=== PATIENT | male | born 1970 | race Caucasian/White ===

== ENCOUNTER 2022-08-10 23:29 | Inpatient (IN) ==
[2022-08-10] MEDS ORDERED: ALBUTEROL NEB SOLN 5 MG/ML 20 ML/BOTTLE CONT NEB SCH (23:45)
[2022-08-10] MEDS ORDERED: methylPREDNISolone SOD SUC 125 MG/2 ML VIAL IV STA (23:46)
[2022-08-10] MEDS ORDERED: niCARdipine INJ 25 MG in SODIUM CHLORIDE 0.9% 240 ML IV PRN (23:52)
[2022-08-10] MEDS ORDERED: ROCURONIUM 100 MG/10 ML VIAL IV ONE (23:57)
[2022-08-10] MEDS ORDERED: ETOMIDATE 20 MG/10 ML VIAL IV ONE (23:57)
[2022-08-10] MEDS ORDERED: ALBUTEROL 2.5 MG/3 ML NEB RESP TX ONE (23:59)
[2022-08-11 00:02] LABS: INR 1.1; PT Patient Result 11.6 SECS (10.1-12.1); Partial Thromboplastin Time 28.3 SECS (23.7-32.9)
[2022-08-11] MEDS ORDERED: niCARdipine 25 MG/10 ML VIAL IV ONE (00:03)
[2022-08-11 00:09] LABS: Albumin 4.3 G/DL (3.4-5.0); Bilirubin,Total 0.6 MG/DL (0.20-1.00); Calcium 8.9 MG/DL (8.5-10.1); Osmolality,Calculated 283.1 MOS/KG (273-304); Potassium 4.1 MMOL/L (3.5-5.1); Total Protein 7.7 G/DL (6.4-8.2)
[2022-08-11 00:20] LABS: Basophils # 0.1 10*3/uL (0.0-0.2); Basophils % 0.5 % (0.0-0.8); Eosinophils # 0.3 10*3/uL (0.0-0.87); Eosinophils % 3.3 % (0.00-10.9); Hematocrit 45.5 VOL% (42.0-52.0); Immature Granulocytes % 0.3 %; Immature Granulocytes Absolute 0.03 #; Lymphocytes # 3.4 10*3/uL (1.4-4.0); Lymphocytes % 36.1 % (21.2-54.2); Mean Corpuscular Volume 99.1 FL (87-102); Monocytes # 0.9 10*3/uL (0.11-0.8); Monocytes % 9.1 % (1.7-12.7); Neutrophils % 50.7 % (38.7-73.9); Platelet Count 234 T/CUMM (130-400); Red Blood Count 4.59 MC/CUMM (3.8-5.5); Red Cell Distribution Width 13.4 % (9.3-17.3); White Blood Count 9.4 T/CUMM (4-12)
[2022-08-11 00:33] LABS: Arterial Base Excess iSTAT -1 MMOL/L (-2.5-2.5); Arterial Bicarbonate iSTAT 26.1 MMOL/L (20-26); Arterial O2 Saturation iSTAT 96 % (95-100); Arterial PCO2 iSTAT 53 MM HG (35-48); Arterial PO2 iSTAT 93 MM HG (80-95); Arterial Total CO2 iSTAT 28 MMO/L (23-27)
[2022-08-11 00:40] LABS: Hyaline Casts,Urine 8 /LPF (0-3); Mucus,Urine Occasional /LPF (Occasional); Squamous Epithelial Cell,Urine Occasional /HPF (0-10)
[2022-08-11 00:42] LABS: Urine Appearance Clear (Clear); Urine Color Yellow (Yellow); Urine Specific Gravity >= 1.030 (1.001-1.035); Urine pH 6.5 (4.5-8.0)
[2022-08-11 00:43] LABS: Bilirubin,Urine Negative (Negative); Blood, Urine Moderate mg/dL (Negative); Glucose,Urine (UA) 100 mg/dL (Negative); Ketones,Urine Negative (Negative); Nitrite,Urine Negative (Negative); Protein,Urine >=300 mg/dL (Negative)
[2022-08-11] MEDS ORDERED: ROCURONIUM 100 MG/10 ML VIAL IV ONE (00:57)
[2022-08-11] MEDS ORDERED: ROCURONIUM 100 MG/10 ML VIAL IV STA (01:00)
[2022-08-11] MEDS ORDERED: ALBUTEROL 2.5 MG/3 ML NEB RESP TX PRN (01:08)
[2022-08-11] MEDS ORDERED: ONDANSETRON 4 MG/2 ML VIAL IV PRN (01:09)
[2022-08-11 01:38] LABS: Barbiturates Screen,Urine Negative (Negative); Benzodiazepines Screen,Urine Negative (Negative); Cannabinoid Screen,Urine Negative (Negative); Opiate Screen,Urine Negative (Negative); Phencyclidine Screen,Urine Negative (Negative)
[2022-08-11] MEDS ORDERED: MIDAZOLAM 2 MG/2 ML VIAL IV ONE (03:11)
[2022-08-11] MEDS ORDERED: MIDAZOLAM 10 MG/2 ML VIAL ONE (03:12)
[2022-08-11] MEDS: MIDAZOLAM DRIP 100 MG/100 ML PREMIX IV PRN ×2 (03:41→23:20)
[2022-08-11 03:42] LABS: Basophils % 0.3 % (0.0-0.8); Eosinophils # 0.1 10*3/uL (0.0-0.87); Eosinophils % 0.4 % (0.00-10.9); Hematocrit 44.8 VOL% (42.0-52.0); Hemoglobin 14.7 GM/DL (14.0-18.0); Immature Granulocytes % 0.3 %; Immature Granulocytes Absolute 0.04 #; Lymphocytes % 8.5 % (21.2-54.2); Mean Corpuscular HGB Conc 32.8 GM/DL (32-36); Mean Corpuscular Volume 98.7 FL (87-102); Mean Platelet Volume 11.6 FL (9.6-12.0); Monocytes # 0.3 10*3/uL (0.11-0.8); Monocytes % 2.6 % (1.7-12.7); Neutrophils % 87.9 % (38.7-73.9); Platelet Count 227 T/CUMM (130-400); Red Blood Count 4.54 MC/CUMM (3.8-5.5); Red Cell Distribution Width 13.3 % (9.3-17.3)
[2022-08-11] MEDS ORDERED: SODIUM CHLORIDE 0.9% 500 ML IV ONE (03:50)
[2022-08-11] MEDS ORDERED: SODIUM CHLORIDE 0.9% 2,000 ML IV ONE (03:50)
[2022-08-11 04:03] LABS: Albumin 4.3 G/DL (3.4-5.0); Bilirubin,Total 0.9 MG/DL (0.20-1.00); Calcium 8.9 MG/DL (8.5-10.1); Osmolality,Calculated 284.3 MOS/KG (273-304); Potassium 4.5 MMOL/L (3.5-5.1); Total Protein 7.4 G/DL (6.4-8.2)
[2022-08-11] MEDS: DOPamine 800 MG/250 ML PREMIX IV PRN (05:12)
[2022-08-11] MEDS: FUROSEMIDE INJ 100 MG in SODIUM CHLORIDE 0.9% 90 ML IV SCH ×2 (11:27→20:12)
[2022-08-11 16:41] LABS: Calcium 8.9 MG/DL (8.5-10.1); Osmolality,Calculated 285.3 MOS/KG (273-304); Potassium 3.9 MMOL/L (3.5-5.1)
[2022-08-12 04:18] LABS: ABG Base Excess 6.4 MMOL/L (-2.5-2.5); ABG HCO3 30.2 MMOL/L (20-26); ABG Oxygen Saturation 96.9 % (95-100); ABG PCO2 43.1 MM HG (35-48); ABG PH 7.465 (7.35-7.45); ABG PO2 84.9 MM HG (80-95); ABG TCO2 26.4 MMOL/L (23-27)
[2022-08-12 04:30] LABS: Basophils % 0.1 % (0.0-0.8); Hematocrit 42.6 VOL% (42.0-52.0); Hemoglobin 14.4 GM/DL (14.0-18.0); Immature Granulocytes % 0.5 %; Immature Granulocytes Absolute 0.12 #; Lymphocytes # 1.6 10*3/uL (1.4-4.0); Lymphocytes % 7.2 % (21.2-54.2); Mean Corpuscular HGB Conc 33.8 GM/DL (32-36); Mean Corpuscular Volume 96.2 FL (87-102); Mean Platelet Volume 10.8 FL (9.6-12.0); Monocytes # 1.4 10*3/uL (0.11-0.8); Monocytes % 6.2 % (1.7-12.7); Platelet Count 281 T/CUMM (130-400); Red Blood Count 4.43 MC/CUMM (3.8-5.5); Red Cell Distribution Width 13.2 % (9.3-17.3); White Blood Count 22.2 T/CUMM (4-12)
[2022-08-12 04:36] LABS: Albumin 3.7 G/DL (3.4-5.0); Bilirubin,Total 0.5 MG/DL (0.20-1.00); Calcium 9.1 MG/DL (8.5-10.1); Osmolality,Calculated 286.1 MOS/KG (273-304); Potassium 3.5 MMOL/L (3.5-5.1); Total Protein 7.3 G/DL (6.4-8.2)
[2022-08-12 05:42] LABS: Lymphocytes 7 % (20-55); Platelet Estimate Adequate; Total Cells Counted 100
[2022-08-12] MEDS: FUROSEMIDE INJ 100 MG in SODIUM CHLORIDE 0.9% 90 ML IV SCH ×2 (06:15→16:40)
[2022-08-12] MEDS: DOPamine 800 MG/250 ML PREMIX IV PRN (11:52)
[2022-08-12 12:57] LABS: ABG Base Excess 7.2 MMOL/L (-2.5-2.5); ABG Oxygen Saturation 97.7 % (95-100); ABG PCO2 46.6 MM HG (35-48); ABG PH 7.451 (7.35-7.45); ABG PO2 99.1 MM HG (80-95); ABG TCO2 27.7 MMOL/L (23-27)
[2022-08-13] MEDS: FUROSEMIDE INJ 100 MG in SODIUM CHLORIDE 0.9% 90 ML IV SCH (02:42)
[2022-08-13 04:46] LABS: ABG Base Excess 8.5 MMOL/L (-2.5-2.5); ABG HCO3 32.2 MMOL/L (20-26); ABG Oxygen Saturation 96.1 % (95-100); ABG PCO2 44.5 MM HG (35-48); ABG PH 7.481 (7.35-7.45); ABG PO2 82.8 MM HG (80-95)
[2022-08-13 04:54] LABS: Basophils % 0.2 % (0.0-0.8); Hematocrit 42.5 VOL% (42.0-52.0); Hemoglobin 14.4 GM/DL (14.0-18.0); Immature Granulocytes % 0.5 %; Immature Granulocytes Absolute 0.08 #; Lymphocytes # 1.6 10*3/uL (1.4-4.0); Mean Corpuscular HGB Conc 33.9 GM/DL (32-36); Mean Corpuscular Volume 97.7 FL (87-102); Monocytes # 1.5 10*3/uL (0.11-0.8); Monocytes % 8.4 % (1.7-12.7); Neutrophils % 81.9 % (38.7-73.9); Platelet Count 249 T/CUMM (130-400); Red Blood Count 4.35 MC/CUMM (3.8-5.5); Red Cell Distribution Width 13.8 % (9.3-17.3); White Blood Count 17.4 T/CUMM (4-12)
[2022-08-13 05:11] LABS: Albumin 3.7 G/DL (3.4-5.0); Bilirubin,Total 0.5 MG/DL (0.20-1.00); Calcium 9.3 MG/DL (8.5-10.1); Osmolality,Calculated 289.3 MOS/KG (273-304); Potassium 3.2 MMOL/L (3.5-5.1); Total Protein 7.4 G/DL (6.4-8.2)
[2022-08-13] MEDS ORDERED: POTASSIUM BICARB EFFERVESCENT 20 MEQ TAB.EFF PER TUBE PRN (09:21)
[2022-08-13] MEDS: AZITHROMYCIN INJ 500 MG in SODIUM CHLORIDE 0.9% 250 ML IV SCH (11:06)
[2022-08-13] MEDS: ENOXAPARIN 40 MG/0.4 ML SYRINGE SUBCUT SCH (11:09)
[2022-08-13] MEDS: PANTOPRAZOLE 40 MG VIAL IV SCH (11:10)
[2022-08-13] MEDS: cefTRIAXone 1,000 MG in SODIUM CHLORIDE 0.9% 100 ML IV SCH (12:09)
[2022-08-13] MEDS: FUROSEMIDE 40 MG/4 ML VIAL IV SCH (18:25)
[2022-08-14] MEDS: DOPamine 800 MG/250 ML PREMIX IV PRN (01:58)
[2022-08-14 03:30] LABS: Basophils # 0.1 10*3/uL (0.0-0.2); Basophils % 0.4 % (0.0-0.8); Eosinophils # 0.1 10*3/uL (0.0-0.87); Eosinophils % 0.5 % (0.00-10.9); Hematocrit 43.3 VOL% (42.0-52.0); Hemoglobin 14.4 GM/DL (14.0-18.0); Immature Granulocytes % 0.4 %; Immature Granulocytes Absolute 0.05 #; Lymphocytes % 14.8 % (21.2-54.2); Mean Corpuscular HGB Conc 33.3 GM/DL (32-36); Mean Corpuscular Volume 97.7 FL (87-102); Mean Platelet Volume 10.9 FL (9.6-12.0); Monocytes # 1.1 10*3/uL (0.11-0.8); Monocytes % 8.3 % (1.7-12.7); Neutrophils % 75.6 % (38.7-73.9); Platelet Count 241 T/CUMM (130-400); Red Blood Count 4.43 MC/CUMM (3.8-5.5); Red Cell Distribution Width 13.8 % (9.3-17.3); White Blood Count 13.7 T/CUMM (4-12)
[2022-08-14 03:37] LABS: ABG Base Excess 9.7 MMOL/L (-2.5-2.5); ABG HCO3 33.5 MMOL/L (20-26); ABG Oxygen Saturation 96.5 % (95-100); ABG PCO2 42.6 MM HG (35-48); ABG PH 7.509 (7.35-7.45); ABG PO2 81.9 MM HG (80-95); ABG TCO2 29.2 MMOL/L (23-27)
[2022-08-14 03:49] LABS: Albumin 3.4 G/DL (3.4-5.0); Bilirubin,Total 0.5 MG/DL (0.20-1.00); Calcium 8.7 MG/DL (8.5-10.1); Osmolality,Calculated 296.7 MOS/KG (273-304); Potassium 3.3 MMOL/L (3.5-5.1); Total Protein 7.1 G/DL (6.4-8.2)
[2022-08-14] MEDS: FUROSEMIDE 40 MG/4 ML VIAL IV SCH ×2 (08:36→18:29)
[2022-08-14] MEDS: ENOXAPARIN 40 MG/0.4 ML SYRINGE SUBCUT SCH (08:37)
[2022-08-14] MEDS: cefTRIAXone 1,000 MG in SODIUM CHLORIDE 0.9% 100 ML IV SCH (08:37)
[2022-08-14] MEDS: PANTOPRAZOLE 40 MG VIAL IV SCH (08:37)
[2022-08-14] MEDS: ASPIRIN EC 81 MG TABLET PO SCH (08:37)
[2022-08-14 09:57] LABS: ABG Base Excess 9.3 MMOL/L (-2.5-2.5); ABG Oxygen Saturation 95.4 % (95-100); ABG PCO2 49.8 MM HG (35-48); ABG PH 7.457 (7.35-7.45); ABG PO2 80.3 MM HG (80-95); ABG TCO2 29.7 MMOL/L (23-27)
[2022-08-14] MEDS: LORazepam 2 MG/1 ML VIAL IV PRN ×3 (12:17→22:19)
[2022-08-14] MEDS: hydrALAZINE 20 MG/1 ML VIAL IV PRN ×3 (13:26→23:10)
[2022-08-14 13:55] LABS: Arterial Base Excess iSTAT 11 MMOL/L (-2.5-2.5); Arterial Bicarbonate iSTAT 35.2 MMOL/L (20-26); Arterial O2 Saturation iSTAT 94 % (95-100); Arterial PCO2 iSTAT 41 MM HG (35-48); Arterial PO2 iSTAT 62 MM HG (80-95); Arterial Total CO2 iSTAT 36 MMO/L (23-27); Arterial pH iSTAT 7.539 (7.35-7.45)
[2022-08-14] MEDS ORDERED: FUROSEMIDE 40 MG/4 ML VIAL IV ONE (14:10)
[2022-08-14] MEDS: ALBUTEROL/IPRATROPIUM 3 ML NEB RESP TX SCH ×2 (14:15→18:59)
[2022-08-14] MEDS: AZITHROMYCIN INJ 500 MG in SODIUM CHLORIDE 0.9% 250 ML IV SCH (15:15)
[2022-08-14] MEDS: ALPRAZolam 0.5 MG TABLET PO SCH (20:00)
[2022-08-15] MEDS ORDERED: LABETALOL 20 MG/4 ML SYRINGE IV ONE (01:28)
[2022-08-15] MEDS: ALBUTEROL/IPRATROPIUM 3 ML NEB RESP TX SCH ×4 (02:00→19:10)
[2022-08-15 03:20] LABS: Basophils # 0.1 10*3/uL (0.0-0.2); Basophils % 0.4 % (0.0-0.8); Eosinophils % 0.1 % (0.00-10.9); Hematocrit 47.6 VOL% (42.0-52.0); Hemoglobin 15.7 GM/DL (14.0-18.0); Immature Granulocytes % 0.5 %; Immature Granulocytes Absolute 0.08 #; Lymphocytes # 1.4 10*3/uL (1.4-4.0); Lymphocytes % 8.2 % (21.2-54.2); Mean Corpuscular Volume 97.5 FL (87-102); Monocytes # 1.3 10*3/uL (0.11-0.8); Monocytes % 7.6 % (1.7-12.7); Neutrophils % 83.2 % (38.7-73.9); Platelet Count 267 T/CUMM (130-400); Red Blood Count 4.88 MC/CUMM (3.8-5.5); Red Cell Distribution Width 13.4 % (9.3-17.3); White Blood Count 17.1 T/CUMM (4-12)
[2022-08-15] MEDS: LORazepam 2 MG/1 ML VIAL IV PRN ×4 (03:35→22:00)
[2022-08-15 03:48] LABS: Calcium 9.6 MG/DL (8.5-10.1); Osmolality,Calculated 306.1 MOS/KG (273-304)
[2022-08-15 04:06] LABS: Arterial Base Excess iSTAT 12 MMOL/L (-2.5-2.5); Arterial Bicarbonate iSTAT 37.5 MMOL/L (20-26); Arterial O2 Saturation iSTAT 98 % (95-100); Arterial PCO2 iSTAT 47 MM HG (35-48); Arterial PO2 iSTAT 96 MM HG (80-95); Arterial Total CO2 iSTAT 39 MMO/L (23-27); Arterial pH iSTAT 7.509 (7.35-7.45)
[2022-08-15] MEDS ORDERED: POTASSIUM CHLORIDE 20 MEQ TABLET PO ONE (07:35)
[2022-08-15] MEDS: LOSARTAN 25 MG TABLET PO SCH ×2 (08:21→20:21)
[2022-08-15] MEDS: carvediloL 3.125 MG TABLET PO SCH ×2 (08:21→16:01)
[2022-08-15] MEDS: ASPIRIN EC 81 MG TABLET PO SCH (08:21)
[2022-08-15] MEDS: ALPRAZolam 0.5 MG TABLET PO SCH ×2 (08:21→15:48)
[2022-08-15] MEDS: PANTOPRAZOLE 40 MG VIAL IV SCH (08:21)
[2022-08-15] MEDS ORDERED: NICOTINE 14 MG/24 HR PATCH TRANSDERM PRN (10:24)
[2022-08-15] MEDS: cefTRIAXone 1,000 MG in SODIUM CHLORIDE 0.9% 100 ML IV SCH (10:46)
[2022-08-15] MEDS: ENOXAPARIN 40 MG/0.4 ML SYRINGE SUBCUT SCH (10:46)
[2022-08-15] MEDS: AZITHROMYCIN INJ 500 MG in SODIUM CHLORIDE 0.9% 250 ML IV SCH (12:18)
[2022-08-15] MEDS ORDERED: ALPRAZolam 0.5 MG TABLET PO PRN (17:30)
[2022-08-15] MEDS: QUEtiapine 25 MG TABLET PO SCH (20:21)
[2022-08-16] MEDS: ALBUTEROL/IPRATROPIUM 3 ML NEB RESP TX SCH ×4 (00:30→19:29)
[2022-08-16] MEDS: LORazepam 2 MG/1 ML VIAL IV PRN ×4 (02:07→22:53)
[2022-08-16 04:42] LABS: Basophils # 0.1 10*3/uL (0.0-0.2); Basophils % 0.4 % (0.0-0.8); Eosinophils % 0.2 % (0.00-10.9); Hematocrit 48.3 VOL% (42.0-52.0); Hemoglobin 15.4 GM/DL (14.0-18.0); Immature Granulocytes % 0.4 %; Immature Granulocytes Absolute 0.06 #; Lymphocytes % 14.1 % (21.2-54.2); Mean Corpuscular HGB Conc 31.9 GM/DL (32-36); Mean Corpuscular Volume 101.3 FL (87-102); Mean Platelet Volume 11.5 FL (9.6-12.0); Monocytes % 7.1 % (1.7-12.7); Neutrophils % 77.8 % (38.7-73.9); Platelet Count 261 T/CUMM (130-400); Red Blood Count 4.77 MC/CUMM (3.8-5.5); Red Cell Distribution Width 13.4 % (9.3-17.3)
[2022-08-16 05:07] LABS: Albumin 3.5 G/DL (3.4-5.0); Calcium 9.1 MG/DL (8.5-10.1); Osmolality,Calculated 320.9 MOS/KG (273-304); Potassium 3.8 MMOL/L (3.5-5.1); Total Protein 7.7 G/DL (6.4-8.2)
[2022-08-16] MEDS: ASPIRIN EC 81 MG TABLET PO SCH (09:15)
[2022-08-16] MEDS: LOSARTAN 25 MG TABLET PO SCH ×2 (09:15→20:08)
[2022-08-16] MEDS: ENOXAPARIN 40 MG/0.4 ML SYRINGE SUBCUT SCH (09:15)
[2022-08-16] MEDS: PANTOPRAZOLE 40 MG VIAL IV SCH (09:16)
[2022-08-16] MEDS: cefTRIAXone 1,000 MG in SODIUM CHLORIDE 0.9% 100 ML IV SCH (09:17)
[2022-08-16] MEDS: carvediloL 3.125 MG TABLET PO SCH ×2 (09:20→16:56)
[2022-08-16] MEDS: AZITHROMYCIN INJ 500 MG in SODIUM CHLORIDE 0.9% 250 ML IV SCH (11:33)
[2022-08-16] MEDS ORDERED: LORazepam 2 MG/1 ML VIAL ONE (12:30)
[2022-08-16] MEDS ORDERED: ZIPRASIDONE 20 MG/1 ML VIAL IM ONE (15:44)
[2022-08-16] MEDS: QUEtiapine 25 MG TABLET PO SCH (20:08)
[2022-08-17] MEDS: ALBUTEROL/IPRATROPIUM 3 ML NEB RESP TX SCH ×4 (00:26→19:22)
[2022-08-17] MEDS ORDERED: ZIPRASIDONE 20 MG/1 ML VIAL IM ONE (02:15)
[2022-08-17 04:59] LABS: Arterial Base Excess iSTAT 6 MMOL/L (-2.5-2.5); Arterial Bicarbonate iSTAT 29.7 MMOL/L (20-26); Arterial O2 Saturation iSTAT 98 % (95-100); Arterial PCO2 iSTAT 40 MM HG (35-48); Arterial PO2 iSTAT 100 MM HG (80-95); Arterial Total CO2 iSTAT 31 MMO/L (23-27); Arterial pH iSTAT 7.479 (7.35-7.45)
[2022-08-17 05:42] LABS: Basophils # 0.1 10*3/uL (0.0-0.2); Basophils % 0.6 % (0.0-0.8); Eosinophils # 0.1 10*3/uL (0.0-0.87); Eosinophils % 0.5 % (0.00-10.9); Hematocrit 45.9 VOL% (42.0-52.0); Hemoglobin 14.8 GM/DL (14.0-18.0); Immature Granulocytes % 0.5 %; Immature Granulocytes Absolute 0.06 #; Lymphocytes # 2.1 10*3/uL (1.4-4.0); Lymphocytes % 17.2 % (21.2-54.2); Mean Corpuscular HGB Conc 32.2 GM/DL (32-36); Mean Corpuscular Volume 102.2 FL (87-102); Mean Platelet Volume 11.2 FL (9.6-12.0); Monocytes # 0.7 10*3/uL (0.11-0.8); Monocytes % 5.7 % (1.7-12.7); Neutrophils % 75.5 % (38.7-73.9); Platelet Count 243 T/CUMM (130-400); Red Blood Count 4.49 MC/CUMM (3.8-5.5); Red Cell Distribution Width 13.4 % (9.3-17.3); White Blood Count 12.4 T/CUMM (4-12)
[2022-08-17 06:04] LABS: Albumin 3.3 G/DL (3.4-5.0); Bilirubin,Total 0.7 MG/DL (0.20-1.00); Calcium 8.9 MG/DL (8.5-10.1); Osmolality,Calculated 326.6 MOS/KG (273-304); Potassium 3.9 MMOL/L (3.5-5.1); Total Protein 7.4 G/DL (6.4-8.2)
[2022-08-17] MEDS: PANTOPRAZOLE 40 MG VIAL IV SCH (08:20)
[2022-08-17] MEDS: carvediloL 3.125 MG TABLET PO SCH ×2 (08:21→16:42)
[2022-08-17] MEDS: ASPIRIN EC 81 MG TABLET PO SCH (08:21)
[2022-08-17] MEDS: LOSARTAN 25 MG TABLET PO SCH ×2 (08:21→20:23)
[2022-08-17] MEDS: cefTRIAXone 1,000 MG in SODIUM CHLORIDE 0.9% 100 ML IV SCH (08:46)
[2022-08-17] MEDS: ENOXAPARIN 40 MG/0.4 ML SYRINGE SUBCUT SCH (08:46)
[2022-08-17] MEDS ORDERED: AZITHROMYCIN INJ 500 MG in SODIUM CHLORIDE 0.9% 250 ML IV SCH (12:00)
[2022-08-17] MEDS: AZITHROMYCIN INJ 500 MG in SODIUM CHLORIDE 0.9% 250 ML IV SCH (12:06)
[2022-08-17 16:48] LABS: Calcium 8.1 MG/DL (8.5-10.1); Osmolality,Calculated 315.1 MOS/KG (273-304); Potassium 3.8 MMOL/L (3.5-5.1)
[2022-08-17] MEDS: QUEtiapine 25 MG TABLET PO SCH (20:23)
[2022-08-17] MEDS ORDERED: ALPRAZolam 0.5 MG TABLET PO SCH (21:00)
[2022-08-18] MEDS: ALBUTEROL/IPRATROPIUM 3 ML NEB RESP TX SCH ×4 (00:08→19:41)
[2022-08-18 04:41] LABS: Basophils # 0.1 10*3/uL (0.0-0.2); Basophils % 0.5 % (0.0-0.8); Eosinophils # 0.2 10*3/uL (0.0-0.87); Eosinophils % 1.6 % (0.00-10.9); Hematocrit 42.8 VOL% (42.0-52.0); Hemoglobin 13.8 GM/DL (14.0-18.0); Immature Granulocytes % 0.5 %; Immature Granulocytes Absolute 0.07 #; Lymphocytes # 2.6 10*3/uL (1.4-4.0); Lymphocytes % 18.9 % (21.2-54.2); Mean Corpuscular HGB Conc 32.2 GM/DL (32-36); Mean Corpuscular Volume 101.2 FL (87-102); Mean Platelet Volume 11.5 FL (9.6-12.0); Monocytes # 0.8 10*3/uL (0.11-0.8); Neutrophils % 72.5 % (38.7-73.9); Platelet Count 228 T/CUMM (130-400); Red Blood Count 4.23 MC/CUMM (3.8-5.5); White Blood Count 13.5 T/CUMM (4-12)
[2022-08-18 05:07] LABS: Calcium 8.6 MG/DL (8.5-10.1); Osmolality,Calculated 305.7 MOS/KG (273-304); Potassium 3.7 MMOL/L (3.5-5.1); Total Protein 6.8 G/DL (6.4-8.2)
[2022-08-18] MEDS ORDERED: ALPRAZolam 0.5 MG TABLET PO PRN (08:45)
[2022-08-18] MEDS: ENOXAPARIN 40 MG/0.4 ML SYRINGE SUBCUT SCH (09:55)
[2022-08-18] MEDS: LOSARTAN 25 MG TABLET PO SCH ×2 (09:55→20:18)
[2022-08-18] MEDS: ASPIRIN EC 81 MG TABLET PO SCH (09:55)
[2022-08-18] MEDS: chlordiazePOXIDE 25 MG CAPSULE PO SCH ×4 (09:55→20:18)
[2022-08-18] MEDS: PANTOPRAZOLE 40 MG VIAL IV SCH (09:56)
[2022-08-18] MEDS: cefTRIAXone 1,000 MG in SODIUM CHLORIDE 0.9% 100 ML IV SCH (10:00)
[2022-08-18] MEDS: QUEtiapine 25 MG TABLET PO SCH (20:18)
[2022-08-19] MEDS: ALBUTEROL/IPRATROPIUM 3 ML NEB RESP TX SCH ×4 (01:13→18:14)
[2022-08-19 06:43] LABS: Basophils # 0.1 10*3/uL (0.0-0.2); Basophils % 0.5 % (0.0-0.8); Eosinophils # 0.3 10*3/uL (0.0-0.87); Eosinophils % 2.2 % (0.00-10.9); Hemoglobin 14.3 GM/DL (14.0-18.0); Immature Granulocytes % 0.4 %; Immature Granulocytes Absolute 0.05 #; Lymphocytes # 2.2 10*3/uL (1.4-4.0); Mean Corpuscular HGB Conc 33.3 GM/DL (32-36); Mean Corpuscular Volume 99.8 FL (87-102); Mean Platelet Volume 12.1 FL (9.6-12.0); Monocytes # 0.8 10*3/uL (0.11-0.8); Monocytes % 6.7 % (1.7-12.7); Neutrophils % 70.2 % (38.7-73.9); Platelet Count 215 T/CUMM (130-400); Red Blood Count 4.31 MC/CUMM (3.8-5.5); Red Cell Distribution Width 12.3 % (9.3-17.3); White Blood Count 11.1 T/CUMM (4-12)
[2022-08-19 06:58] LABS: Calcium 8.5 MG/DL (8.5-10.1); Potassium 3.7 MMOL/L (3.5-5.1)
[2022-08-19 08:44] LABS: Platelet Estimate Normal
[2022-08-19 08:45] LABS: Anisocytosis Slight; Macrocytosis Slight
[2022-08-19] MEDS: chlordiazePOXIDE 25 MG CAPSULE PO SCH ×3 (09:23→20:32)
[2022-08-19] MEDS: LOSARTAN 25 MG TABLET PO SCH ×2 (09:23→20:32)
[2022-08-19] MEDS: ASPIRIN EC 81 MG TABLET PO SCH (09:24)
[2022-08-19] MEDS: PANTOPRAZOLE 40 MG VIAL IV SCH (09:24)
[2022-08-19] MEDS: ENOXAPARIN 40 MG/0.4 ML SYRINGE SUBCUT SCH (09:24)
[2022-08-19] MEDS: cefTRIAXone 1,000 MG in SODIUM CHLORIDE 0.9% 100 ML IV SCH (09:57)
[2022-08-19] MEDS ORDERED: ACETAMINOPHEN 325 MG TABLET PO PRN (10:58)
[2022-08-19] MEDS: QUEtiapine 25 MG TABLET PO SCH (20:32)
[2022-08-20] MEDS: ALBUTEROL/IPRATROPIUM 3 ML NEB RESP TX SCH ×2 (00:06→07:34)
[2022-08-20 05:41] LABS: Basophils # 0.1 10*3/uL (0.0-0.2); Basophils % 0.7 % (0.0-0.8); Eosinophils # 0.2 10*3/uL (0.0-0.87); Eosinophils % 2.7 % (0.00-10.9); Hematocrit 39.8 VOL% (42.0-52.0); Hemoglobin 13.5 GM/DL (14.0-18.0); Immature Granulocytes % 0.3 %; Immature Granulocytes Absolute 0.03 #; Lymphocytes # 2.2 10*3/uL (1.4-4.0); Mean Corpuscular HGB Conc 33.9 GM/DL (32-36); Mean Corpuscular Volume 97.5 FL (87-102); Mean Platelet Volume 11.9 FL (9.6-12.0); Monocytes # 0.7 10*3/uL (0.11-0.8); Monocytes % 8.2 % (1.7-12.7); Neutrophils % 63.1 % (38.7-73.9); Platelet Count 198 T/CUMM (130-400); Red Blood Count 4.08 MC/CUMM (3.8-5.5); Red Cell Distribution Width 12.2 % (9.3-17.3); White Blood Count 8.8 T/CUMM (4-12)
[2022-08-20 06:03] LABS: Bilirubin,Total 0.6 MG/DL (0.20-1.00); Calcium 9.1 MG/DL (8.5-10.1); Osmolality,Calculated 285.3 MOS/KG (273-304); Potassium 3.7 MMOL/L (3.5-5.1); Total Protein 6.3 G/DL (6.4-8.2)
[2022-08-20] MEDS ORDERED: ALBUTEROL/IPRATROPIUM 3 ML NEB RESP TX PRN (07:34)
[2022-08-20] MEDS: chlordiazePOXIDE 25 MG CAPSULE PO SCH ×3 (08:49→20:44)
[2022-08-20] MEDS: ASPIRIN EC 81 MG TABLET PO SCH (08:49)
[2022-08-20] MEDS: BUDESONIDE/FORMOTEROL 160-4.5 INHALER 6 GM INH SCH ×2 (08:49→20:45)
[2022-08-20] MEDS: ENOXAPARIN 40 MG/0.4 ML SYRINGE SUBCUT SCH (08:49)
[2022-08-20] MEDS: PANTOPRAZOLE 40 MG VIAL IV SCH (08:49)
[2022-08-20] MEDS: LOSARTAN 25 MG TABLET PO SCH ×2 (08:49→20:45)
[2022-08-20] MEDS: cefTRIAXone 1,000 MG in SODIUM CHLORIDE 0.9% 100 ML IV SCH (08:50)
[2022-08-20] MEDS: SPIRONOLACTONE 25 MG TABLET PO SCH (10:12)
[2022-08-20] MEDS: FUROSEMIDE 40 MG TABLET PO SCH (10:12)
[2022-08-20] MEDS: QUEtiapine 25 MG TABLET PO SCH (20:44)
[2022-08-21 05:31] LABS: Basophils # 0.1 10*3/uL (0.0-0.2); Basophils % 0.6 % (0.0-0.8); Eosinophils # 0.3 10*3/uL (0.0-0.87); Eosinophils % 3.4 % (0.00-10.9); Hematocrit 44.2 VOL% (42.0-52.0); Hemoglobin 14.7 GM/DL (14.0-18.0); Immature Granulocytes % 0.4 %; Immature Granulocytes Absolute 0.04 #; Lymphocytes # 2.2 10*3/uL (1.4-4.0); Lymphocytes % 21.7 % (21.2-54.2); Mean Corpuscular HGB Conc 33.3 GM/DL (32-36); Mean Corpuscular Volume 97.4 FL (87-102); Mean Platelet Volume 12.1 FL (9.6-12.0); Monocytes # 0.7 10*3/uL (0.11-0.8); Monocytes % 6.6 % (1.7-12.7); Neutrophils % 67.3 % (38.7-73.9); Platelet Count 245 T/CUMM (130-400); Red Blood Count 4.54 MC/CUMM (3.8-5.5); Red Cell Distribution Width 12.1 % (9.3-17.3)
[2022-08-21] MEDS ORDERED: chlordiazePOXIDE 10 MG CAPSULE PO PRN (08:02)
[2022-08-21 09:08] LABS: Calcium 8.7 MG/DL (8.5-10.1); Osmolality,Calculated 277.5 MOS/KG (273-304); Potassium 3.4 MMOL/L (3.5-5.1)
[2022-08-21] MEDS: FUROSEMIDE 40 MG TABLET PO SCH (09:20)
[2022-08-21] MEDS: ASPIRIN EC 81 MG TABLET PO SCH (09:20)
[2022-08-21] MEDS: SPIRONOLACTONE 25 MG TABLET PO SCH (09:20)
[2022-08-21] MEDS: LOSARTAN 25 MG TABLET PO SCH (09:20)
[2022-08-21] MEDS: PANTOPRAZOLE 40 MG VIAL IV SCH (09:21)
[2022-08-21] MEDS: BUDESONIDE/FORMOTEROL 160-4.5 INHALER 6 GM INH SCH (09:21)
[2022-08-21] MEDS: ENOXAPARIN 40 MG/0.4 ML SYRINGE SUBCUT SCH (09:21)
[2022-08-21] MEDS: POTASSIUM CHLORIDE 20 MEQ TABLET PO PRN ×2 (09:46→12:12)
[2022-08-21 11:09] VITALS: BP 134/82
== END 2022-08-21 14:42 | disposition home or self-care (01) | DRG 208 ==
LOC: N.ED 23:29 → SUATTDRO 08-11 01:08 → N.EDINP 08-11 01:08 → N.CC 08-11 01:17 → N.3E 08-19 21:59
PROVIDERS: ADMIT Internal Medicine; ATTEND Emergency Medicine